=== PATIENT | female | born 1970 | race Caucasian/White ===

== ENCOUNTER 2021-09-12 10:08 | Emergency (ER) | payer OTHER ==
[2021-09-12 11:09] LABS: BASOPHIL 0.8 % (0-2); EOSINOPHIL 0.5 % (0-5); HCT 45.8 % (37.0-47.0); HGB 16.2 g/dl (12.5-16.0); MCH 30.6 pg (25.0-31.0); MCHC 35.4 g/dL (32.0-36.0); MCV 86.4 fL (78.0-100.0); MONOCYTE 4.5 % (0-12); MPV 10.1 fL (6.0-9.5); NEUTROPHIL 63.7 % (41-80); NRBC 0; PLT 341 K/uL (150-400); RDW 11.9 % (11.5-14.0); WBC 15.5 K/uL (4.0-10.5)
[2021-09-12 11:37] LABS: ALBUMIN 3.6 g/dL (3.4-5.0); BILIRUBIN - TOTAL 1.1 mg/dL (0.2-1.0); BUN/CREAT RATIO (CALC) 11.3 RATIO; CREATININE 0.62 mg/dL (0.51-0.95); GLOBULIN (CALCULATION) 4.4 g/dL; POTASSIUM 2.7 mmol/L (3.5-5.1)
[2021-09-12 13:05] LABS: BILIRUBIN NEGATIVE (NEGATIVE); BLOOD NEGATIVE Ery/uL (NEGATIVE); CLARITY CLEAR (CLEAR); COLOR YELLOW (YELLOW); GLUCOSE (U) NORMAL (NORMAL); LEUKOCYTES TRACE Leu/uL (NEGATIVE); NITRITE POSITIVE (NEGATIVE); PROTEIN NEGATIVE (NEGATIVE); UROBILINOGEN 0.2 mg/dL (0.2-1.0)
[2021-09-12 13:18] LABS: BACTERIA 4+
[2021-09-12] MEDS ORDERED: MACROBID100 MG PO (16:48)
[2021-09-12] MEDS ORDERED: ZOFRAN4 M1 PO (16:49)
== END 2021-09-12 16:05 | disposition left against medical advice (07) ==
LOC: FER 10:08
PROVIDERS: Emergency Medicine
DX: N39.0 Urinary tract infection, site not specified (principal); R11.2 Nausea with vomiting, unspecified; R19.7 Diarrhea, unspecified; J44.9 Chronic obstructive pulmonary disease, unspecified; E11.9 Type 2 diabetes mellitus without complications; F17.200 Nicotine dependence, unspecified, uncomplicated; Z88.2 Allergy status to sulfonamides; Z88.6 Allergy status to analgesic agent; Z88.8 Allergy status to other drugs, medicaments and biological substances; Z88.1 Allergy status to other antibiotic agents; Z53.8 Procedure and treatment not carried out for other reasons; Z20.822 Contact with and (suspected) exposure to COVID-19
CPT/HCPCS: 36415; 80053; 81001; 82150; 83690; 85025; J0780; J1200; J1885; J3411; J3475; J7030; U0002